=== PATIENT | female | born 1990 | race Caucasian/White ===

== ENCOUNTER → 2020-07-20 13:22 | Outpatient (CLI) | payer BC ==
--- NOTE | ~2020-07-20 | EC ---
PATIENT:ANYI TOLLIVER DATE OF SERVICE: 07/20/20 SEX: F MEDICAL RECORD: [id number] DATE OF : [birth year] [facility] AGE [facility] PAT[facility]: 30 ADMISSION DATE: 07/20/20 REFERRING PHYSICIAN: INTERPRETING PHYSICIAN: JAGJIT GARNETT MD ECHOCARDIOGRAM REPORT ECHO CHARGES 4 ECHO COMPLETE Date: 07/20/20 CLINICAL DIAGNOSIS: HEART MURMUR/PALPITATIONS ECHOCARDIOGRAPHIC MEASUREMENTS (adult normal given) AC root (d.<3.7cm) 3.0 cm LV Septum d (<1.2 cm> 1.0 cm Valve Excursion 1.4 cm LV Septum (systole) 1.3 cm Left Atria (s.<4.0cm> 3.5 cm LVPW d(<1.2cm) 1.2 cm RV (d.<2.3cm) 3.4 cm LVPW (sytole) 1.5 cm LV diastole(<5.6CM) 4.4 cm MV E-F(>70mm/sec) cm LV systole 2.9 cm LVOT Diameter 2.1 cm MV exc.(>10mm) 1.3 cm Est.ejection fraction (50-75%) % DOPPLER: LVIT cm/sec A 67.0 cm/sec E 92.0 cm/sec LA cm/sec RVSP 28 mmHg LVOT 100 cm/sec AOP1/2T m/s Asc. Ao 124 cm/sec RVOT 77 cm/sec RA cm/sec PA 104 cm/sec AV Gradient Peak 6.19 mmHg AV Mean 3.17 mmHg AV Area 2.8 cm MV Gradient Peak 4.15 mmHg MV Mean 1.83 mmHg MV Area cm COMMENTS: Planning Advisor: 2 [employer] [employer] Website/Blog Editor: 3 Dr. Aleman TAPE# PACS Pericardial Effusion N DATE OF SERVICE: Adequate 2D, color-flow imaging, spectral Doppler, and M-Mode FINDINGS: No LVH. LV internal dimension is normal. Wall motion is normal. EF is greater than or equal to 55%. Aortic valve is tricuspid. No evidence of stenosis by Doppler interrogation. Left atrium is normal. Mitral valve shows no prolapse. Trivial MR. Right side is grossly normal. Trivial TR. TRANSINT:[id number] Voice Confirmation ID: [id number] DOCUMENT ID: [id number] ECHOCARDIOGRAM REPORT [id number] ANYI TOLLIVER GREGORY A MD CC: [id number] DICTATION DATE: 07/22/20815 [employer] OFFICER: 07/22/20 0840 DEP CLI 07/20/20 [place] [id number] [place] [id number]
== END | disposition home or self-care (01) ==
LOC: D.HCCECHO 13:00
PROVIDERS: ATTEND Internal Medicine Interventional Cardiology
DX: R01.1 Cardiac murmur, unspecified (principal)